=== PATIENT | female | born 1945 | race Two or more races ===

== ENCOUNTER 2019-08-10 16:19 | Inpatient (IN) | payer OTHER ==
[~2019-08-10] VITALS: Ht 160 cm; Wt 83.5 kg
[2019-08-10 16:30] VITALS: BP 157/64
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
--- NOTE | 2019-08-10 17:31 | NUR ---
HAND OFF AND SBAR GIVEN TO KRISTINA RN PT OK TO ADMIT TO MHU RM 138A UNDER ROCHE/IQumulus DX: FOR MEDICAL CLEARANCE/AMS
--- NOTE | 2019-08-10 17:53 | NUR ---
PT TRANSPORTED TO [facility] BY OPAL BALLESTEROS
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
[2019-08-10] MEDS ORDERED: MAG HYDROX/AL HYDROX/SIMETH 30 ML LIQUID UDC PO PRN (18:30)
[2019-08-10] MEDS ORDERED: TEMAZEPAM 7.5 MG CAPSULE PO PRN (18:30)
[2019-08-10] MEDS ORDERED: CLONAZEPAM 0.5 MG TABLET PO PRN (18:30)
[2019-08-10] MEDS ORDERED: PNEUMOCOCCAL 23-VAL P-SAC VAC 0.5 ML VIAL IM ONE (19:15)
[2019-08-10] MEDS: ACETAMINOPHEN 325 MG TABLET PO PRN (20:19)
[2019-08-10 20:59] VITALS: BP 145/49
--- NOTE | 2019-08-10 23:00 | NUR ---
received to care, sitting in her room, isolative, and guarded upon approach. resistive to interview questions. refused pneumonia vaccine, stating she would take it in the morning. appears oriented to person and place only. PRN tylenol was given for headache. as of 2300, she appears to be asleep. no dsitress noted. will continue to monitor closely.
--- NOTE | 2019-08-11 06:30 | NUR ---
slept 8 hours total. assisted with am care, and shower. is now asleep, again. no distress noted..
[2019-08-11 07:30] VITALS: BP 130/61
[2019-08-11 09:57] LABS: BILIRUBIN,TOTAL 0.4 mg/dL (0.2-1.0); CREATININE 0.8 mg/dL (0.6-1.3); POTASSIUM 4.5 mmol/L (3.5-5.1); TOTAL PROTEIN, SERUM 6.1 g/dL (6.4-8.2)
[2019-08-11] MEDS: BENZTROPINE MESYLATE 0.5 MG TABLET PO SCH ×2 (10:59→16:22)
[2019-08-11] MEDS: HALOPERIDOL 5 MG TABLET PO SCH ×2 (10:59→16:21)
--- NOTE | 2019-08-11 12:05 | NUR ---
Initial Discharge Plan: Pt is currently living at home with her family, son Devin and maximino Garay [[phone]]. Per pt, she would like to return home when she is ready for discharge. ANDREW spoke with next of kin, maximino Garay [[phone]] and states the family also wishes for pt to return home when she is ready for discharge. ANDREW will continue to collaborate with pt, family, and MD regarding appropriate discharge plans for this pt. ANDREW will form a safe and proper discharge plan.
--- NOTE | 2019-08-11 12:06 | NUR ---
Family Contact: SW spoke with pts next of kin, maximino Geeinar [[phone]] and she states the family also wishes for pt to return home when she is ready for discharge. Pt family may be interested in home health supportive services, if needed.
--- NOTE | 2019-08-11 13:24 | NUR ---
Pt AAO, no acute distress or behavioral issues noted. Pt cooperative, ambulating with PT/OT using walker, steady rushed gait, able to make needs known. Compliant with medication administration taking pills whole. Pt denies SI/HI, AH/VH, and able to CFS. All comfort and safety measures implemented. Will continue to monitor.
--- NOTE | 2019-08-11 15:52 | NUR ---
Social Work UR Note: Social work contacted [facility] ([phone]) and sent patient's clinicals H & P psychiatric notes and progress notes.
[2019-08-11 16:05] VITALS: BP 129/53
[2019-08-11 20:20] VITALS: BP 132/56
[2019-08-11] MEDS: SIMVASTATIN 40 MG TABLET PO SCH (20:40)
[2019-08-12 07:30] VITALS: BP 125/49
[2019-08-12] MEDS: BENZTROPINE MESYLATE 0.5 MG TABLET PO SCH ×2 (08:40→16:49)
[2019-08-12] MEDS: HALOPERIDOL 5 MG TABLET PO SCH ×2 (08:40→16:49)
[2019-08-12] MEDS: ASPIRIN 325 MG TABLET PO SCH (08:42)
[2019-08-12] MEDS: LISINOPRIL 10 MG TABLET PO SCH (08:42)
[2019-08-12 10:33] VITALS: BP 125/49
--- NOTE | 2019-08-12 12:45 | NUR ---
Social Work UR Note: Social work contacted [facility] ([phone]) and sent patient's clinicals H & P psychiatric notes and progress notes to case management coordinator Doyle [[phone]].
[2019-08-12 16:00] VITALS: BP 110/44
--- NOTE | 2019-08-12 17:00 | NUR ---
Gps/Financial Business Analyst- Encouraged to attend her group therapy this pm, claimed she already attended her am group therapy,. Encouraged to attend all her group therapy. Complained of headache, offered prn med.
--- NOTE | 2019-08-12 20:00 | NUR ---
Patient received into care laying in bed sleeping. Patient has no s/s of acute distress or discomfort noted/observed by nurse. All safety and fall precaution measures are in place. Will continue to monitor and observe.
[2019-08-12 20:10] VITALS: BP 116/45
[2019-08-12] MEDS: SIMVASTATIN 40 MG TABLET PO SCH (20:40)
--- NOTE | 2019-08-13 06:57 | NUR ---
Patient was compliant with all aspects of care this shift and slept 8h. Patient was showered this am and is now resting comfortably in bed. All safety and fall precaution measures remain in place. Will provide report to AM nurse.
[2019-08-13 07:30] VITALS: BP 106/57
--- NOTE | 2019-08-13 08:25 | NUR ---
Social Work UR Note: Social work contacted [facility] ([phone]) and sent patient's clinicals H & P psychiatric notes and progress notes.
[2019-08-13] MEDS: HALOPERIDOL 5 MG TABLET PO SCH ×2 (08:44→16:17)
[2019-08-13] MEDS: LISINOPRIL 10 MG TABLET PO SCH (08:44)
[2019-08-13] MEDS: ASPIRIN 325 MG TABLET PO SCH (08:45)
[2019-08-13] MEDS: BENZTROPINE MESYLATE 0.5 MG TABLET PO SCH ×2 (08:45→16:18)
[2019-08-13 16:00] VITALS: BP 117/54
[2019-08-13] MEDS: ACETAMINOPHEN 325 MG TABLET PO PRN (16:17)
--- NOTE | 2019-08-13 17:30 | NUR ---
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 couple of times, denies any stomach ache, instructed patient not to flushed toilet and let staff know every time she moved her bowels. No BM noted at this time, claimed her stomach is better.
[2019-08-13] MEDS: SIMVASTATIN 40 MG TABLET PO SCH (20:10)
[2019-08-13 20:27] VITALS: BP 144/62
--- NOTE | 2019-08-14 06:26 | NUR ---
GPS: Pt.slept 8 hrs. last night. No bowel movement noted/reported. No abd.discomfort verbalized. Fall precautions observed. Re-directed prn.
[2019-08-14 07:30] VITALS: BP 141/51
[2019-08-14] MEDS: BENZTROPINE MESYLATE 0.5 MG TABLET PO SCH ×2 (08:42→17:11)
[2019-08-14] MEDS: HALOPERIDOL 5 MG TABLET PO SCH ×2 (08:42→17:11)
[2019-08-14] MEDS: ASPIRIN 325 MG TABLET PO SCH (08:43)
[2019-08-14] MEDS: LISINOPRIL 10 MG TABLET PO SCH (08:44)
[2019-08-14] MEDS ORDERED: PNEUMOCOCCAL 23-VAL P-SAC VAC 0.5 ML VIAL IM ONE (09:30)
[2019-08-14] MEDS ORDERED: FUROSEMIDE 40 MG TABLET PO SCH (12:00)
[2019-08-14 16:30] VITALS: BP 99/52
[2019-08-14 20:09] VITALS: BP 113/50
[2019-08-14] MEDS: SIMVASTATIN 40 MG TABLET PO SCH (20:41)
--- NOTE | 2019-08-15 03:26 | NUR ---
GPS: Pt. continue 14/days hold. PT. appears confused, disoriented to place and person. Speech unclear and conversation not appropriate. Pt spoke of having diarrhea up to 12-21 times today but no record found. Cooperative with nursing care and meds. Pt. noted anxious and covers face while in bed, breathing even while asleep and frequent round made. No PRN were given at this time. safety orientation continue.
--- NOTE | 2019-08-15 06:49 | NUR ---
Pt slept for 7.0 hours during shift, and took shower. Pt resting in bed.
[2019-08-15 07:30] VITALS: BP 134/51
[2019-08-15] MEDS: BENZTROPINE MESYLATE 0.5 MG TABLET PO SCH ×2 (08:35→17:34)
[2019-08-15] MEDS: HALOPERIDOL 5 MG TABLET PO SCH ×2 (08:35→17:34)
[2019-08-15] MEDS: LISINOPRIL 10 MG TABLET PO SCH (08:36)
[2019-08-15] MEDS: ASPIRIN 325 MG TABLET PO SCH (08:36)
[2019-08-15 17:00] VITALS: BP 122/50
[2019-08-15] MEDS: SIMVASTATIN 40 MG TABLET PO SCH (20:04)
[2019-08-15 20:43] VITALS: BP 115/44
[2019-08-16 07:30] VITALS: BP 120/48
[2019-08-16] MEDS: BENZTROPINE MESYLATE 0.5 MG TABLET PO SCH ×2 (08:38→17:05)
[2019-08-16] MEDS: HALOPERIDOL 5 MG TABLET PO SCH ×2 (08:38→17:05)
[2019-08-16] MEDS: ASPIRIN 325 MG TABLET PO SCH (08:38)
[2019-08-16] MEDS: LISINOPRIL 10 MG TABLET PO SCH (08:39)
--- NOTE | 2019-08-16 12:15 | NUR ---
Social Work UR Note: Respiratory Coordinator faxed patient's clinicals H & P psychiatric notes and progress notes to [facility] caseworker protective services Doyle [fax [phone]; phone [phone]].
[2019-08-16 15:05] VITALS: BP 124/45
[2019-08-16 20:30] VITALS: BP 132/50
[2019-08-16] MEDS: SIMVASTATIN 40 MG TABLET PO SCH (20:31)
--- NOTE | 2019-08-16 23:51 | NUR ---
RECEIVED PATIENT IN HER ROOM. MOOD LOW BUT DENIES SI/HI.COMPLIANT WITH CARE AND MEDICATIONS.VISUAL CHECKS MADE ON HER. WILL CONTINUE TO MONITOR.
--- NOTE | 2019-08-17 06:21 | NUR ---
SHE SLEPT FOR 7;30HRS.SHE IS UP AND HAS TAKEN A SHOWER. WILL CONTINUE TO MONITOR.
--- NOTE | 2019-08-17 06:22 | NUR ---
SLEPT FAIRLY WELL FOR 5;30HRS EARLIER ON IN THE SHIFT. WOKE UP AND SAT ON HIS BED FOER A WHILE AND LATER REQUESTED FOR A SNACK THIS MORNING.
[2019-08-17 07:30] VITALS: BP 108/49
[2019-08-17] MEDS: LISINOPRIL 10 MG TABLET PO SCH (08:38)
[2019-08-17] MEDS: HALOPERIDOL 5 MG TABLET PO SCH ×2 (08:38→16:46)
[2019-08-17] MEDS: ASPIRIN 325 MG TABLET PO SCH (08:38)
[2019-08-17] MEDS: BENZTROPINE MESYLATE 0.5 MG TABLET PO SCH ×2 (08:38→16:46)
--- NOTE | 2019-08-17 11:43 | NUR ---
Social Work UR Note: Social work contacted [facility] ([phone]) and sent patient's clinicals H & P psychiatric notes and progress notes to lead case manager Doyle [[phone]].
--- NOTE | 2019-08-17 14:56 | NUR ---
Social Work Individual Therapy: distillery worker met with patient for brief counseling to address patients delusional thought content. Patient is able to have a meaningful conversation. Patient denies auditory/visual hallucination. Patient is vague with her answers and only responds to this report writer with "yes or no" answers. Patient is guarded and isolative.
[2019-08-17 15:57] VITALS: BP 138/63
[2019-08-17] MEDS: SIMVASTATIN 40 MG TABLET PO SCH (20:03)
[2019-08-17 20:21] VITALS: BP 157/64
[2019-08-18 07:30] VITALS: BP 146/55
[2019-08-18] MEDS: HALOPERIDOL 5 MG TABLET PO SCH ×2 (08:39→16:09)
[2019-08-18] MEDS: BENZTROPINE MESYLATE 0.5 MG TABLET PO SCH ×2 (08:39→16:09)
[2019-08-18] MEDS: ASPIRIN 325 MG TABLET PO SCH (08:39)
[2019-08-18] MEDS: LISINOPRIL 10 MG TABLET PO SCH (08:40)
--- NOTE | 2019-08-18 09:38 | NUR ---
Social Work PC Hearing Notification: germination worker contacted patient's granddaughter Kalpana, ([phone]) and notified patient's probable cause of hearing today.
--- NOTE | 2019-08-18 11:56 | NUR ---
Social Work UR Note: Social work contacted [facility] ([phone]) and sent patient's clinicals H & P psychiatric notes and progress notes to correctional case records supervisor Doyle [[phone]]
[2019-08-18 16:00] VITALS: BP 127/41
[2019-08-18 20:52] VITALS: BP 125/51
[2019-08-18] MEDS: SIMVASTATIN 40 MG TABLET PO SCH (21:06)
--- NOTE | 2019-08-18 22:00 | NUR ---
received to care, lying in bed, pleasant upon approach. compliant with medications and staff direction. as of 2199, she appears to be asleep, in bed. no distress noted. will continue to monitor closely.
--- NOTE | 2019-08-19 06:00 | NUR ---
slept fairly well. continues to sleep. no distress noted.
[2019-08-19 07:30] VITALS: BP 108/33
[2019-08-19] MEDS: BENZTROPINE MESYLATE 0.5 MG TABLET PO SCH ×2 (08:33→16:28)
[2019-08-19] MEDS: HALOPERIDOL 5 MG TABLET PO SCH ×2 (08:33→20:37)
[2019-08-19] MEDS: LISINOPRIL 10 MG TABLET PO SCH (08:37)
[2019-08-19] MEDS: ASPIRIN 325 MG TABLET PO SCH (08:40)
--- NOTE | 2019-08-19 12:18 | NUR ---
Social Work UR Note: Social work contacted [facility] ([phone]) and sent patient's clinicals H & P psychiatric notes and progress notes to bilingual patient support caseworker Doyle [[phone]].
[2019-08-19 16:00] VITALS: BP 114/39
[2019-08-19 20:00] VITALS: BP 159/68
[2019-08-19] MEDS: SIMVASTATIN 40 MG TABLET PO SCH (20:38)
[2019-08-19] MEDS ORDERED: HALOPERIDOL 1 MG TABLET PO SCH (21:00)
--- NOTE | 2019-08-19 23:19 | NUR ---
GPS: Pt received resting in bed, awake to name and light touch. Pt responsive verbally when initiated. Received endorsement of pt c/o not able to sleep due to roommate yelling, and Pt. on new order Haldol 7.5mg bid stated. Routine meds given as order, pt cooperative and advised of side effect to monitor and report. Will continue to monitor per new order. fall precaution and preventing measures in place.
[2019-08-20 06:30] LABS: CREATININE 0.7 mg/dL (0.6-1.3); POTASSIUM 4.3 mmol/L (3.5-5.1)
[2019-08-20 06:36] LABS: BASOPHILS # (AUTO) 0.1 K/uL (0.0-8.0); BASOPHILS % (AUTO) 0.9 % (0.0-2.0); EOSINOPHILS # (AUTO) 0.3 K/uL (0.0-0.7); EOSINOPHILS % (AUTO) 3.7 % (0.0-7.0); HEMOGLOBIN 12.6 g/dL (10.9-14.3); LYMPHOCYTES # (AUTO) 2.4 K/uL (20.0-40.0); MEAN CORPUSCULAR HGB CONC 32 g/dL (32.3-35.6); MEAN CORPUSCULAR VOLUME 95.6 fL (75.5-95.3); MONOCYTES # (AUTO) 0.8 K/uL (2.0-10.0); MONOCYTES % (AUTO) 10.2 % (0.0-11.0); NEUTROPHILS # (AUTO) 3.9 K/uL (1.8-8.9); NEUTROPHILS % (AUTO) 52.2 % (38.5-71.5); PLATELET COUNT (AUTO) 188 K/uL (179-408); RED BLOOD CELL COUNT(AUTO) 4.08 MIL/uL (3.63-4.92); WHITE BLOOD COUNT (AUTO) 7.4 K/uL (3.8-11.8)
--- NOTE | 2019-08-20 06:47 | NUR ---
Pt slept 7.15min during night and noted even breathing with no s/s of adverse effect from new order Haldol. Continue monitor, left resting at this time.
[2019-08-20 07:30] VITALS: BP 149/80
[2019-08-20] MEDS: ASPIRIN 325 MG TABLET PO SCH ×2 (08:54→17:16)
[2019-08-20] MEDS: BENZTROPINE MESYLATE 0.5 MG TABLET PO SCH ×2 (09:15→17:39)
[2019-08-20] MEDS: HALOPERIDOL 5 MG TABLET PO SCH ×2 (09:15→20:12)
[2019-08-20] MEDS: LISINOPRIL 10 MG TABLET PO SCH (09:15)
--- NOTE | 2019-08-20 09:44 | NUR ---
Social Work Family Contact: retail salesworker contacted patient's granddaughter Kalpana ([phone]) who agreed that they will pick patient up at 1PM on 08/23.
--- NOTE | 2019-08-20 09:45 | NUR ---
Social Work Coordination of Care: funeral workers was contacted by patient's finance insurance manager Jahaira ([phone]) who arranged an appointment with psychiatrist on 09/10/[address] [place] [address] [address] [address] ([phone]). Per Jahaira, patient will receive home health services through ([phone]) and a nurse will evaluate patient on 08/24/2019.
--- NOTE | 2019-08-20 12:57 | NUR ---
Social Work Coordination of Care: bridge ironworker contacted patient's doctor's office and spoke with Zahida ([phone]) who scheduled a virtual meeting with the patient over the phone on August ([phone]) with . Addendum: 08/20/19 at 1259 by ANDREW RAMIREZ Due to COVID-19 doctor is taking appointments through virtual meeting.
--- NOTE | 2019-08-20 13:04 | NUR ---
Social Work Firearms Report: Transitional Care Liaison completed and submitted a [employer] firearms report for 5250 grave disability certification. A copy of report has been placed in patient chart.
--- NOTE | 2019-08-20 13:47 | NUR ---
Social Work UR Note: Social work contacted [facility] ([phone]) and sent patient's clinicals H & P psychiatric notes and progress notes to manager rn case Doyle [[phone]].
--- NOTE | 2019-08-20 14:58 | NUR ---
Social Work Individual Therapy: insulation worker apprentice met with patient for brief counseling to address patients delusional thought content. Patient is able to have a meaningful conversation. Patient denies auditory/visual hallucination. Patient stated that she is excited to go back home on 08/22 and stated that she is excited to cook and clean. This typewriters functional tester actively listened and provided emotional support.
[2019-08-20 15:16] VITALS: BP 137/60
[2019-08-20] MEDS: SIMVASTATIN 40 MG TABLET PO SCH (20:11)
[2019-08-20 21:11] VITALS: BP 117/49
--- NOTE | 2019-08-20 22:00 | NUR ---
received to care, lying in bed, initially asleep, but pleasant upon approach. compliant with medications, snacks, and staff direction. as of 2200, she appears to be asleep. no distress noted. will continue to monitor closely.
--- NOTE | 2019-08-21 06:00 | NUR ---
slept fairly well. continues to sleep. no distress noted.
[2019-08-21 07:30] VITALS: BP 110/50
--- NOTE | 2019-08-21 07:30 | NUR ---
on bed, resting well. no distress.
[2019-08-21] MEDS: ASPIRIN 325 MG TABLET PO SCH (08:42)
[2019-08-21] MEDS: HALOPERIDOL 5 MG TABLET PO SCH ×2 (08:43→20:55)
[2019-08-21] MEDS: LISINOPRIL 10 MG TABLET PO SCH (08:43)
[2019-08-21] MEDS: BENZTROPINE MESYLATE 0.5 MG TABLET PO SCH ×2 (08:43→17:10)
--- NOTE | 2019-08-21 10:17 | NUR ---
ambulatory in hallway, denies distress. tolerated breakfast well
--- NOTE | 2019-08-21 15:00 | NUR ---
resting well in room, out at times for med , or water , ice needed. Addendum: 08/21/19 at 1820 by AURELIO MENDENHALL RN error in charting
--- NOTE | 2019-08-21 15:00 | NUR ---
sleeping comfortably. no distress noted
[2019-08-21 15:20] VITALS: BP 164/61
--- NOTE | 2019-08-21 18:16 | NUR ---
ate well, good day per patient after shower and slept well pm. appreciative of care
--- NOTE | 2019-08-21 18:17 | NUR ---
no outburst noted. med for pain with relief. anxious to be discharge soon. compliant with care
[2019-08-21 20:00] VITALS: BP 125/62
[2019-08-21] MEDS: SIMVASTATIN 40 MG TABLET PO SCH (20:55)
--- NOTE | 2019-08-21 21:39 | NUR ---
GPS: Pt. received asleep with breathing even and easily abusable with light touch, respond to name. No changes noted, pt cooperative with all routine medications. No behavior of acting out noted at this time, will continue to monitor.
[2019-08-22] MEDS ORDERED: MAGNESIUM HYDROXIDE 30 ML LIQUID UDC PO PRN (03:15)
--- NOTE | 2019-08-22 06:48 | NUR ---
Pt slept 8.30min during shift and still asleep. no distress noted, no behavior, breathing even while asleep. Continue monitor for safety.
[2019-08-22 07:30] VITALS: BP 129/66
[2019-08-22] MEDS: HALOPERIDOL 5 MG TABLET PO SCH ×2 (08:29→20:45)
[2019-08-22] MEDS: BENZTROPINE MESYLATE 0.5 MG TABLET PO SCH ×2 (08:29→16:42)
[2019-08-22] MEDS: ASPIRIN 325 MG TABLET PO SCH (08:30)
[2019-08-22] MEDS: LISINOPRIL 10 MG TABLET PO SCH (08:30)
--- NOTE | 2019-08-22 10:00 | NUR ---
ASSISTED WITH SHOWERS COMPLIANT COOPERATIVE ALERT AND AWARE MADE COMFORTABLE WILL CONTINUE TO PROVIDE SAFE AND THERAPEUTIC ENVIRONMENT AT ALL TIMES
[2019-08-22 16:00] VITALS: BP 124/46
--- NOTE | 2019-08-22 18:00 | NUR ---
PATIENT HAS BEEN COMPLIANT AND COOPERATIVE UP AND AMBULATED TO DESIRED DESTINATIONS PARTICIPATED IN ACTIVITIES NO C/O AT THIS TIME.
[2019-08-22 20:24] VITALS: BP 152/64
[2019-08-22] MEDS: SIMVASTATIN 40 MG TABLET PO SCH (20:45)
--- NOTE | 2019-08-23 06:00 | NUR ---
slept 8.0 hours, total. continues to sleep. no distress noted.
[2019-08-23 07:30] VITALS: BP 119/55
--- NOTE | 2019-08-23 08:03 | NUR ---
Social Work Discharge Note: Patient will be discharged home to [address] [place], [place] [address] [address]; ([phone]). Patients granddaughter Kalpana ([phone]) will pick patient up at 1PM. Patients granddaughter Kalpana ([phone]) is aware and agreeable with discharge plan. Upon discharge, patient appear to be calm, cooperative and happy to be going home. Patient denies suicidal and homicidal ideation. Patient will follow up with (psychiatrist) on 09/10/19 at 3PM at [address] [facility] [address], [place] [address] ([phone]) and with (television news photographer) Dr. Sarkar ([phone]) who scheduled a virtual meeting with the patient over the phone on August 1PM (due to COVID-19 primary doctor scheduled virtual/phone session). Patients insurance claims examiner Jahaira ([phone]), arranged home health services through ([phone]) and a nurse will evaluate patient on 08/24/2019. Patient presented with euthymic mood and congruent affect.
[2019-08-23] MEDS: HALOPERIDOL 5 MG TABLET PO SCH (09:04)
[2019-08-23] MEDS: ASPIRIN 325 MG TABLET PO SCH (09:04)
[2019-08-23] MEDS: BENZTROPINE MESYLATE 0.5 MG TABLET PO SCH (09:04)
[2019-08-23 09:05] VITALS: BP 119/55
[2019-08-23] MEDS: LISINOPRIL 10 MG TABLET PO SCH (09:05)
--- NOTE | 2019-08-23 13:30 | NUR ---
GPS: Nursing Notes: Discharge Notes: Patient is awake and responding to her name, cooperative with nursing care, compliant with her medications, following staff directions, denies any SI/HI, denies any AH/VH, denies any pain or discomfort, denies any SOB, discharge patient home with her Grand-Daughter - Kalpana at [address] [place] [address] , transported home via private vehicle, took her belongings with her. Patient will follow up with (psychiatrist) on 09/10/19 at 3PM at [address] [facility] [address], [place] [address] ([phone]) and with (blemish remover) Dr. Sarkar ([phone]) who scheduled a virtual meeting with the patient over the phone on August 1PM (due to COVID-19 primary doctor scheduled virtual/phone session). Patients patient insurance clerk Jahaira ([phone]), arranged home health services through ([phone]) and a nurse will evaluate patient on 08/24/2019.
== END 2019-08-23 13:30 | disposition home or self-care (01) | DRG 885 ==
LOC: ER 16:21 → GPS 17:32
PROVIDERS: ADMIT Psychiatry & Neurology Psychiatry; ATTEND Hospitalist
DX: F20.0 Paranoid schizophrenia (principal); E44.1 Mild protein-calorie malnutrition; E78.5 Hyperlipidemia, unspecified; Z79.01 Long term (current) use of anticoagulants; Z79.82 Long term (current) use of aspirin; E11.9 Type 2 diabetes mellitus without complications; F32.9 Major depressive disorder, single episode, unspecified; I10 Essential (primary) hypertension; I25.10 Atherosclerotic heart disease of native coronary artery without angina pectoris; F29 Unspecified psychosis not due to a substance or known physiological condition; Z68.32 Body mass index [BMI] 32.0-32.9, adult
CPT/HCPCS: 36415; 85025; 90732; A4663